=== PATIENT | female | born 1960 | race Caucasian/White ===

== ENCOUNTER 2016-09-21 12:21 | Emergency (ER) | payer OTHER ==
--- NOTE | 2016-09-21 15:14 | ED ORDER SUMMARY ---
..... Patient: CRIS ENCARNACION OrderSheet [facility] VisitID: [id number] [address] [place] [address] 56y, F Registration Date/Time: 09/21/2016 ORDER SHEET Weight: Allergies: Compazine, Demerol GENERAL ORDERS: MEDICATION ORDERS: Phenergan IV 12.5 mg (HIGH ALERT MEDICATION, NOW) (12:50 09/21/2016 Nilam GREENBERG) (13:15 Pat R.N.) IV FLUIDS: IV NS : initial bolus 1000 mL (1000 mL/hr), then none - (NOW) (12:50 09/21/2016 Nilam GREENBERG) (13:13 Pat R.N.) Toradol IV 30 mg (NOW) (12:50 09/21/2016 Nilam GREENBERG) (13:14 KPaemmanuel-William R.N.) Dilaudid IV 1 mg (HIGH ALERT MEDICATION, NOW) (12:50 09/21/2016 Nilam GREENBERG) (13:15 Pat R.N.) ORDER SHEET NOTES: [Electronically signed by Shoshana Wing R.N. (15:25 09/21/2016)] [Electronically signed by Blank Lipscomb MD (22:38 09/21/2016)] [Electronically locked/signed by Shoshana Wing R.N. (15:25 09/21/2016)]
--- NOTE | 2016-09-21 15:14 | ED CLINICAL REPORT ---
Clinical Report - Physicians/Mid Levels [facility] [address] [place] [address] 09/21/2016 12:24 Patient: CRIS ENCARNACION Time Seen: 12:49. Arrived- By private vehicle. Historian- patient. HISTORY OF PRESENT ILLNESS Chief Complaint: HEADACHE. Is still present. This started yesterday. Onset during light activity. It is described as similar to previous headaches and "pain". Located in the left hemicranial region. No neck pain. At its maximum, severity described as severe. When seen in the E.D., severity described as severe. Modifying factors: relieved by nothing. Not worsened by anything. The patient has had nausea and vomiting. No preceding symptoms, blurred vision, photophobia, numbness or weakness. Similar symptoms previously: Many times. Recent medical care: ( Pt is followed by Dr. Hargrove/neurology.). Not recently seen/assessed. REVIEW OF SYSTEMS No fever, muscle aches, sinus pressure, ear pain or sore throat. No head injury, chest pain, difficulty breathing, cough or abdominal pain. No diarrhea, pain with urination, skin rash, enlarged lymph nodes or back pain. All systems otherwise negative, except as recorded above. PAST HISTORY Problems: Neuro cardiogenic syncope with pacemaker. Migraine Headache. Additional Surgeries: Appendectomy. Hysterectomy. Knee Surgery. Pacemaker. Medications: Gabapentin Oral. Zyrtec. Estradiol Oral. Allergies: Compazine. Demerol. SOCIAL HISTORY Never smoker. No alcohol use or drug use. ADDITIONAL NOTES The nursing notes have been reviewed. PHYSICAL EXAM Vital Signs: 09/21/2016 12:27 BP: 142/102. HR: 83. RR: 19. O2 saturation: 100%. Temp: 97.5 F. Pain level now: 01/31. Have been reviewed. Appearance: Alert. (Pt appears moderately uncomfortable.). Eyes: Pupils equal, round and reactive to light. Eyes normal inspection. ENT: Nose normal. Neck: Normal inspection. CVS: Normal heart rate and rhythm. Heart sounds normal. Pulses normal. Respiratory: No respiratory distress. Breath sounds normal. Abdomen: Soft and nontender. No organomegaly. Back: Normal inspection. No CVA tenderness. Skin: Skin warm and dry. Normal skin color. No rash. Normal skin turgor. Extremities: Extremities exhibit normal ROM. No lower extremity edema. Neuro: Oriented X 3. Alert. Mood/affect normal. Speech normal. Cranial nerves normal (as tested). No cerebellar findings. No motor deficit. No sensory deficit. LABS, X-RAYS, AND EKG Pulse Oximetry: 09/21/2016 12:27 O2 saturation: 100%. (FIO2 - room air). Interpretation: normal. PROGRESS AND PROCEDURES Course of Care: Pt was given IV fluids, Toradol, Phenergan, and Dilaudid, with symptomatic relief. Headache was consistent with previous headaches, and pt was without neurologic sx. Patient and family counseled in person regarding the patient's stable condition, diagnosis and need for follow-up. Concerns were addressed. Old medical records reviewed. Disposition: Discharged. Condition: stable and improved. CLINICAL IMPRESSION Acute recurrent migraine headache- poorly controlled. INSTRUCTIONS Warnings: SEDATIVE MEDICATION: You were given sedative medication during your visit. Do not drive or operate dangerous machinery for 6 hours. GENERAL WARNINGS: Return or contact your physician immediately if your condition worsens or changes unexpectedly, if not improving as expected, or if other problems arise. Your Current Medications: CONTINUE TAKING THE FOLLOWING MEDICATIONS: Estradiol Oral. Gabapentin Oral. Zyrtec*. Prescription Medications: Toradol 10 mg tablets: take 1 tablet orally every 6 hours as needed for pain. Dispense fifteen (15). No refill. Substitution is permissible. Phenergan Tablets 25 mg: take 1 tablet orally every 6 hours as needed for nausea. Dispense fifteen (15). No refill. Substitution is permissible Hydromorphone 2 mg: take 1-2 tablets orally every 6 hours as needed for pain. Dispense fifteen (15). No refill. Follow-up: Follow up with your doctor as needed. Understanding of the discharge instructions verbalized by patient. (Electronically signed by Blank Lipscomb MD 09/21/2016 22:38)
--- NOTE | 2016-09-21 15:14 | ED ORDER SUMMARY ---
..... Patient: CRIS ENCARNACION OrderSheet [facility] VisitID: [id number] [address] [place] [address] 56y, F Registration Date/Time: 09/21/2016 ORDER SHEET Weight: Allergies: Compazine, Demerol GENERAL ORDERS: MEDICATION ORDERS: Phenergan IV 12.5 mg (HIGH ALERT MEDICATION, NOW) (12:50 09/21/2016 Nilam GREENBERG) (13:15 Pat R.N.) IV FLUIDS: IV NS : initial bolus 1000 mL (1000 mL/hr), then none - (NOW) (12:50 09/21/2016 Nilam GREENBERG) (13:13 Pat R.N.) Toradol IV 30 mg (NOW) (12:50 09/21/2016 Nilam GREENBERG) (13:14 KPaemmanuel-William R.N.) Dilaudid IV 1 mg (HIGH ALERT MEDICATION, NOW) (12:50 09/21/2016 Nilam GREENBERG) (13:15 Pat R.N.) ORDER SHEET NOTES: [Electronically signed by Shoshana Wing R.N. (15:25 09/21/2016)] [Electronically signed by Blank Lipscomb MD (22:38 09/21/2016)] [Electronically locked/signed by Shoshana Wing R.N. (15:25 09/21/2016)]
--- NOTE | 2016-09-21 15:14 | ED NURSING NOTES ---
Clinical Report - Nurses [facility] [address] [place] [address] 09/21/2016 12:24 Patient: CRIS ENCARNACION TRIAGE Triage time 12:28 Sep 21 2016. Chief Complaint: MIGRAINE HEADACHE and (pt reports "ice pick" headache, pt has contacted her neurologist Dajuan Pruitt and hasn't heard back, pt reports it began monday, always on the left side, pt rec botox injections for her headaches). Alert. SEPSIS SCREEN: Sepsis Screen. Negative (no infection suspected/documented). KAIT COMA SCORE: Kait Coma Scale: 15- eyes open spontaneously (4); best verbal response- oriented x 4 (5); best motor response- obeys commands (6). --12:35 Ana Rosa Aranda R.N. 12:27 09/21/16. BP: 142/102. HR: 83. RR: 19. O2 saturation: 100%. Temp: 97.5 F. Pain level now: 01/31. --12:35 Ana Rosa Aranda R.N. Medications Estradiol Oral. --12:31 PageAna Rosa Gillis R.N. Zyrtec. --12:31 PageAna Rosa Gillis R.N. Gabapentin Oral. --12:31 Ana Rosa Aranda R.N. Medication/allergy information source: the patient. --12:35 Ana Rosa Aranda R.N. Allergies Compazine. --12:35 Ana Rosa Aranda R.N. Demerol. --12:35 Ana Rosa Aranda R.N. History Arrived by private vehicle. Historian: patient. This started monday. This is a recurrent problem and onset was abrupt. Treatment PATTERN MAKER: (tylenol 3 gabapentin). PAST MEDICAL HX: Immunizations: up-to-date. The patient has had a hysterectomy. SOCIAL HX: No recent travel. No infectious disease exposure. No known contact with a sick individual. ABUSE ASSESSMENT: No report of abuse. SELF HARM ASSESSMENT: A self harm assessment was performed. The patient answered "no" to the question "Do you have thoughts of harming or killing yourself?". FALL RISK ASSESSMENT: Fall risk assessment completed. No fall risk identified. NUTRITIONAL RISK ASSESSMENT: The nutritional risk assessment revealed no deficiencies. FUNCTIONAL ASSESSMENT: Functional assessment: no impairments noted. LEARNING NEEDS ASSESSMENT: The learning needs assessment revealed no barriers. SKIN INTEGRITY ASSESSMENT: Skin integrity risk assessment completed. No skin integrity risk identified. --12:35 Ana Rosa Aranda R.N. SOCIAL HX: Never smoker. No alcohol use or drug use. No recent travel. No infectious disease exposure. No known contact with a sick individual. ABUSE ASSESSMENT: No report of abuse. --12:45 Ana Rosa Aranda R.N. PROBLEMS: Neuro cardiogenic syncope with pacemaker. Migraine Headache. --12:33 Ana Rosa Aranda R.N. ADDITIONAL SURGERIES: Appendectomy. Hysterectomy. Knee Surgery. Pacemaker. --12:33 Ana Rosa Aranda R.N. Interventions ID band on patient. --12:35 Ana Rosa Aranda R.N. PHYSICAL ASSESSMENT Ambulatory to room. Patient gowned. GENERAL / NEURO / PSYCH: Alert. Oriented X 4. Appears in pain and anxious. HEENT: Pupils equal, round and reactive to light. RESPIRATORY: Respirations not labored. CVS: Capillary refill less than 2 seconds. GI / : Abdomen soft. SKIN: Skin is warm and dry. --12:36 Ana Rosa Aranda R.N. NURSING PROGRESS NOTES Two patient identifiers checked. Call light placed in reach. Side rails up x 1. Bed placed in lowest position. Brakes of bed on. Patient ready for evaluation- chart flagged. Patient waiting for evaluation. --12:36 Ana Rosa Aranda R.N. 12:43 09/21/2016 Site #1 started via IV in the right antecubital space with an 20g angiocath; one attempt. Blood drawn: rainbow set. Labeled in the presence of the patient and sent to the lab. Saline lock flushed with 10 mL saline. --12:43 Ana Rosa Aranda R.N. 13:09/21/2016 Started bag #1 1000 mL IV Fluids IV NS (Saline); at 1000 mL/hr via site #1 via dial-a-flow. Allergies verified and confirmed 5 rights. IV patency established. IV site checked: no pain, redness, or swelling. IV flushed thoroughly pre- and post-medication administration. --13:13 Ana Rosa Aranda R.N. 13:09/21/2016 Toradol IVP 30 mg given. via site #1. Allergies verified and confirmed 5 rights. IV patency established. IV site checked: no pain, redness, or swelling. IV flushed thoroughly pre- and post-medication administration. IVP given by RN. --13:14 Ana Rosa Aranda R.N. 13:09/21/2016 Dilaudid (HYDROmorphone HCl PF) IVP 1 mg given. via site #1. Allergies verified, confirmed 5 rights and sedative warning given to the patient. IV patency established. IV site checked: no pain, redness, or swelling. IV flushed thoroughly pre- and post-medication administration. IVP given by RN. --13:15 Ana Rosa Aranda R.N. 13:09/21/2016 PHENERGAN (Promethazine HCl) IVP 12.5 mg given. via site #1. Allergies verified and confirmed 5 rights. IV patency established. IV site checked: no pain, redness, or swelling. IV flushed thoroughly pre- and post-medication administration. IVP given by RN. --13:15 Ana Rosa Aranda R.N. Pulse oximeter and NIBP monitor placed on patient; monitor alarms on (pt placed on pulse ox prior to narcotic pain meds). Patient identifiers checked. Call light placed in reach. Side rails up x 1. Bed placed in lowest position. Brakes of bed on. ( supportive daughter at bedside). --13:16 Ana Rosa Aranda R.N. ( Assisted pt up to use restroom). --13:56 Daisha Nunez, LEROY Tech1 14:09/21/16. BP: 128/60. HR: 76. RR: 15. O2 saturation: 98%. Pain level now: 0/10. --14:10 Ana Rosa Aranda R.N. Call light placed in reach. ( pt now pain free, preparing pt for dispo). --14:10 Ana Rosa Aranda R.N. Care transferred and report received (XAVIER Oseguera). --15:11 Shoshana Wing R.N. 15:00 09/21/2016 IV Fluids IV NS Discontinued: bag #1 completed upon discharge. Total amount infused: 1000 mL. --15:25 Shoshana Wing R.N. DISPOSITION / DISCHARGE 15:23 09/21/2016 Site #1 removed upon discharge. Catheter intact. Manual pressure, pressure dressing, bandaid and bandage applied. --15:23 Shoshana Wing R.N. Departure time: 1525 PM. Condition at departure: improved and stable. No learning barriers present. Discharge instructions provided and reviewed with the patient. Reviewed medication(s) side effects, precautions, dosing and course information. Prescription(s) given to the patient. Patient verbalized understanding. Written instructions provided in Mongolian. No treatment instructions or referrals given to the patient. The patient was discharged by the physician. She was discharged home and accompanied by family. She left the Emergency Department ambulatory and via private vehicle. Family member driving. FALL RISK ASSESSMENT: Fall risk assessment completed. No fall risk identified. --15:24 Shoshana Wing R.N. 15:20 09/21/16. BP: 103/67 (regular adult cuff) taken on the left arm, via an automated monitor, while sitting. HR: 76. RR: 12. O2 saturation: 100% on room air. Temp: 97.7 F (oral). Pain level now: 2/10. --15:24 Shoshana Wing R.N. Locked/Released at 09/21/2016 15:25 by Shoshana Wing R.N.
--- NOTE | 2016-09-21 22:39 | ED MED RECONCILIATION SUMMARY ---
Patient: CRIS ENCARNACION Medication Reconciliation Report [facility] VisitID: [id number] [address] [place] [address] 56y, F Registration Date/Time: 09/21/2016 Weight: (not available) Height/Length: (not available) BMI: (not available) ALLERGIES: Compazine, Demerol The patient's Home Medications are listed below: CONTINUE TAKING THE FOLLOWING MEDICATIONS: Estradiol Oral Gabapentin Oral Zyrtec The source(s) of the original Home Medication information: patient The following Medications were given to the patient in the Emergency Department: IV NS IV Fluids bolus 0, then 1000 mL/hr, administered: 09/21/2016 1:03:00 PM Toradol [IVP] IVP 30 mg, administered: 09/21/2016 1:09:00 PM Dilaudid [IVP] IVP 1 mg, administered: 09/21/2016 1:10:00 PM PHENERGAN [IVP] IVP 12.5 mg, administered: 09/21/2016 1:10:00 PM The following Medications were prescribed to the patient: Toradol 10 mg tablets: take 1 tablet orally every 6 hours as needed for pain. Dispense fifteen (15). No refill. Substitution is permissible. -- Blank Lipscomb MD Phenergan Tablets 25 mg: take 1 tablet orally every 6 hours as needed for nausea. Dispense fifteen (15). No refill. Substitution is permissible -- Blank Lipscomb MD Hydromorphone 2 mg: take 1-2 tablets orally every 6 hours as needed for pain. Dispense fifteen (15). No refill. -- Blank Lipscomb MD
--- NOTE | 2016-09-21 22:39 | ED MED RECONCILIATION SUMMARY ---
Patient: CRIS ENCARNACION Medication Reconciliation Report [facility] VisitID: [id number] [address] [place] [address] 56y, F Registration Date/Time: 09/21/2016 Weight: (not available) Height/Length: (not available) BMI: (not available) ALLERGIES: Compazine, Demerol The patient's Home Medications are listed below: CONTINUE TAKING THE FOLLOWING MEDICATIONS: Estradiol Oral Gabapentin Oral Zyrtec The source(s) of the original Home Medication information: patient The following Medications were given to the patient in the Emergency Department: IV NS IV Fluids bolus 0, then 1000 mL/hr, administered: 09/21/2016 1:03:00 PM Toradol [IVP] IVP 30 mg, administered: 09/21/2016 1:09:00 PM Dilaudid [IVP] IVP 1 mg, administered: 09/21/2016 1:10:00 PM PHENERGAN [IVP] IVP 12.5 mg, administered: 09/21/2016 1:10:00 PM The following Medications were prescribed to the patient: Toradol 10 mg tablets: take 1 tablet orally every 6 hours as needed for pain. Dispense fifteen (15). No refill. Substitution is permissible. -- Blank Lipscomb MD Phenergan Tablets 25 mg: take 1 tablet orally every 6 hours as needed for nausea. Dispense fifteen (15). No refill. Substitution is permissible -- Blank Lipscomb MD Hydromorphone 2 mg: take 1-2 tablets orally every 6 hours as needed for pain. Dispense fifteen (15). No refill. -- Blank Lipscomb MD
--- NOTE | 2016-09-21 22:39 | ED MAR SUMMARY ---
..... Medication Administration Record [facility] [address] [place] [address] Patient: CRIS ENCARNACION Visit ID: [id number] 56y, F Weight: (not available) Height/Length: (not available) BMI: (not available) ALLERGIES: Demerol, Compazine Start 13:03 09/21/2016 Ana Rosa Aranda R.N., Stop 15:00 09/21/2016 Shoshana Wing R.N. Medication Administered: IV NS (SALINE), Dose: IV Fluids, Rate: 1000 mL/hr, Dispensed: 1000 mL bag, Site: #1 right AC. Medication Ordered: IV NS : initial bolus 1000 mL (1000 mL/hr), then none - (NOW). Given 13:09 09/21/2016 Ana Rosa Aranda R.N. Medication Administered: TORADOL [IVP], Dose: 30 mg IVP, Site: #1 right AC. Medication Ordered: Toradol IV 30 mg (NOW). Given 13:09/21/2016 Ana Rosa Aranda R.N. Medication Administered: DILAUDID [IVP] (HYDROMORPHONE HCL PF), Dose: 1 mg IVP, Site: #1 right AC. Medication Ordered: Dilaudid IV 1 mg (HIGH ALERT MEDICATION, NOW). Given 13:09/21/2016 Ana Rosa Aranda R.N. Medication Administered: PHENERGAN [IVP] (PROMETHAZINE HCL), Dose: 12.5 mg IVP, Site: #1 right AC. Medication Ordered: Phenergan IV 12.5 mg (HIGH ALERT MEDICATION, NOW).
--- NOTE | 2016-09-21 22:39 | ED DISCHARGE INSTRUCTIONS ---
Patient: CRIS ENCARNACION General Instructions [facility] VisitID: [id number] [address] [place] [address] 56y, F Registration Date/Time: 09/21/2016 Acute recurrent migraine headache- poorly controlled. INSTRUCTIONS Warnings: SEDATIVE MEDICATION: You were given sedative medication during your visit. Do not drive or operate dangerous machinery for 6 hours. GENERAL WARNINGS: Return or contact your physician immediately if your condition worsens or changes unexpectedly, if not improving as expected, or if other problems arise. Your Current Medications: CONTINUE TAKING THE FOLLOWING MEDICATIONS: Estradiol Oral. Gabapentin Oral. Zyrtec*. Prescription Medications: Toradol 10 mg tablets: take 1 tablet orally every 6 hours as needed for pain. Dispense fifteen (15). No refill. Substitution is permissible. Phenergan Tablets 25 mg: take 1 tablet orally every 6 hours as needed for nausea. Dispense fifteen (15). No refill. Substitution is permissible Hydromorphone 2 mg: take 1-2 tablets orally every 6 hours as needed for pain. Dispense fifteen (15). No refill. Follow-up: Follow up with your doctor as needed. Understanding of the discharge instructions verbalized by patient. ADDITIONAL INFORMATION Migraine Headache Migraine headaches are related to changes in blood flow to the brain. This causes throbbing or constant pain on one or both sides of the head. The pain may last from a few hours to several days. There is usually nausea, vomiting, sensitivity to light and sound, and blurred vision. A migraine attack may be triggered by emotional stress, hormone changes during the menstrual cycle, oral contraceptives, alcohol use, certain foods containing tyramine, eye strain, weather changes, missing meals, or too little or too much sleep. Home Care For This Headache: 1) If you were given pain medicine for this headache, do not drive yourself home . Arrange for a ride, instead. When you get home, try to sleep. You should feel much better when you wake up. 2) Migraine headaches may improve with an ice pack on the forehead or at the base of the skull. Heat to the back of your neck may relieve any neck spasm. 3) Drink only clear liquids or eat a very light diet to avoid nausea/vomiting until symptoms improve. Preventing Future Headaches: 1) Pay attention to those factors that seem to trigger your headache. Try to avoid them when you can. If you have frequent headaches, it is useful to keep a diary of what you were doing, feeling or eating in the hours before each attack. Show this to your doctor to help find the cause of your headaches. a) If you feel that stress is a factor in your headaches, look at the sources of stress in your life. Find ways to release the build-up of those stresses by using regular exercise, relaxation methods (yoga, meditation), bio-feedback or simply taking time-out for yourself. For more information about this, consult your doctor or go to a local bookstore and review books and tapes on this subject. b) Tyramine is a substance present in the following foods : chocolate, yogurt, all cheeses except cottage cheese and cream cheese. smoked or pickled fish and meat (including burgos, caviar, bologna, pepperoni, salami), liver, avocados, bananas, figs, raisins, and red wine. Be aware that these foods may trigger a migraine in some persons. Try taking these foods out of your diet for 1-2 months to see if this reduces headache frequency. Treating Future Attacks: 1) At the first sign of a headache, take time out if possible. Find a quiet, dark, comfortable place to sit or lie down. Let yourself relax or sleep. 2) An ice pack on the forehead or area of greatest pain may help. If you are having muscle spasm and tightness of the neck, a heating pad and massage to this area may be helpful. 3) If you have been prescribed a medicine to stop a migraine headache, use this at the very first warning sign of the headache (aura or initial pain) for best results. Follow Up with your doctor if the headache is not better within the next 24 hours. If you have frequent headaches you should discuss a treatment plan with your primary care doctor. Ask if you can have medicine to take at home the next time you get a bad headache. Poorly controlled chronic headaches may require a referral to a neurologist (headache specialist). Get Prompt Medical Attention if any of the following occur: Your head pain gets worse, or does not improve within 24 hours Repeated vomiting (cant keep liquids down) Sinus or ear or throat pain (not already reported) Fever of 100.4 F (38 C) or higher, or as directed by your healthcare provider Stiff neck Extreme drowsiness, confusion or fainting Dizziness, vertigo (dizziness with spinning sensation) Weakness of an arm or leg or one side of the face Difficulty with speech or vision You have been given the following additional information: Headache, Migraine (Classical) (Electronically signed by Blank Lipscomb MD 09/21/2016 22:38)
--- NOTE | 2016-09-21 22:39 | ED MAR SUMMARY ---
..... Medication Administration Record [facility] [address] [place] [address] Patient: CRIS ENCARNACION Visit ID: [id number] 56y, F Weight: (not available) Height/Length: (not available) BMI: (not available) ALLERGIES: Demerol, Compazine Start 13:03 09/21/2016 Ana Rosa Aranda R.N., Stop 15:00 09/21/2016 Shoshana Wing R.N. Medication Administered: IV NS (SALINE), Dose: IV Fluids, Rate: 1000 mL/hr, Dispensed: 1000 mL bag, Site: #1 right AC. Medication Ordered: IV NS : initial bolus 1000 mL (1000 mL/hr), then none - (NOW). Given 13:09 09/21/2016 Ana Rosa Aranda R.N. Medication Administered: TORADOL [IVP], Dose: 30 mg IVP, Site: #1 right AC. Medication Ordered: Toradol IV 30 mg (NOW). Given 13:09/21/2016 Ana Rosa Aranda R.N. Medication Administered: DILAUDID [IVP] (HYDROMORPHONE HCL PF), Dose: 1 mg IVP, Site: #1 right AC. Medication Ordered: Dilaudid IV 1 mg (HIGH ALERT MEDICATION, NOW). Given 13:09/21/2016 Ana Rosa Aranda R.N. Medication Administered: PHENERGAN [IVP] (PROMETHAZINE HCL), Dose: 12.5 mg IVP, Site: #1 right AC. Medication Ordered: Phenergan IV 12.5 mg (HIGH ALERT MEDICATION, NOW).
== END 2016-09-21 15:25 | disposition home or self-care (01) ==
LOC: ED SRH 12:21
DX: G43.919 Migraine, unspecified, intractable, without status migrainosus (principal); Z95.0 Presence of cardiac pacemaker; Z79.899 Other long term (current) drug therapy; Z88.5 Allergy status to narcotic agent; Z88.8 Allergy status to other drugs, medicaments and biological substances